=== PATIENT | female | born 1975 | race Caucasian/White ===

== ENCOUNTER → 2016-08-21 | Outpatient (CLI) | payer SELFPAY ==
[2016-08-21 08:26] LABS: MEAN PLATELET VOLUME 9.3 FL (7.4-10.4); RED BLOOD COUNT 4.85 10^6/uL (4.35-5.85); RED CELL DISTRIBUTION WIDTH 12.6 % (10.0-14.5); WHITE BLOOD COUNT 5.1 10^3/uL (4.3-11.0)
[2016-08-21 08:50] LABS: ALANINE AMINOTRANSFERASE 27 U/L (0-55); ALBUMIN 4.2 G/DL (3.2-4.5); ANION GAP 8 MMOL/L (5-14); ASPARTATE AMINO TRANSFERASE 23 U/L (5-34); BILIRUBIN,TOTAL 0.5 MG/DL (0.1-1.0); BLOOD UREA NITROGEN 9 MG/DL (7-18); BUN/CREATININE RATIO 11; CARBON DIOXIDE 26 MMOL/L (21-32); CHLORIDE 105 MMOL/L (98-107); CREATININE SERUM 0.81 MG/DL (0.60-1.30); GFR ESTIMATED > 60; GLUCOSE 95 MG/DL (70-105); SODIUM 139 MMOL/L (135-145); TOTAL PROTEIN 7.1 G/DL (6.4-8.2)
[2016-08-21 09:11] LABS: THYROID STIMULATING HORMONE 2.98 UIU/ML (0.35-4.94)
[2016-08-22 08:40] LABS: VITAMIN D 25-HYDROXY (TOTAL) 28 ng/mL (30-100)
[2016-08-25 07:35] LABS: MISC LAB TEST & RESULT CARDIO IQ LIPID
== END ==
LOC: LAB 08:07
DX: Z13.9 Encounter for screening, unspecified (principal)
CPT/HCPCS: 36415; 80053; 82306; 84439; 84443; 85027

== ENCOUNTER → 2016-08-21 | Outpatient (CLI) | payer SELFPAY ==
--- NOTE | 2016-08-23 09:40 | ECHOCARDIOGRAPHY REPORT ---
DATE OF SERVICE: 08/21/2016 REFERRING PHYSICIAN: USHA BEARDEN DO TEST DATE: 08/21/2016 MEASUREMENT: LVID end diastolic 4.0, IVS thickness 1.0, LVPW thickness 1.0, left atrial diameter 3.1, ejection fraction 60%. FINDINGS: 1. Technical quality is good. 2. The left ventricle is normal in size with normal contractility. No left ventricular hypertrophy. No segmental wall motion abnormalities, systolic function appeared to be normal, estimated ejection fraction 60%. 3. The left atrium is normal in size. No clot or thrombus were seen within the left atrium. 4. The right atrium and right ventricle are normal in size. No clot or thrombus were seen within the right side. 5. Mitral valve is normal in morphology with trace mitral regurgitation noted by color Doppler flow. No mitral valve prolapse. No mitral valve stenosis. 6. Aortic valve is trileaflet with normal opening and closing pattern. No significant aortic stenosis or regurgitation was seen. 7. Tricuspid valve is normal in morphology with trace tricuspid regurgitation noted by color Doppler flow. Doppler across the tricuspid valve estimated pulmonary artery pressure of 20+ right atrial pressure. 8. Pulmonic valve is functioning normally. 9. No pericardial effusion. CONCLUSION: 1. Normal to echocardiogram. 2. Normal left ventricular size and systolic function, estimated ejection fraction 60%. 3. Trace mitral and tricuspid regurgitation. 4. Estimated pulmonary artery pressure of 25 mmHg. Job ID: [id number] DocumentID: [id number] Dictated Date: 08/23/2016 07:58:30 Retort Press Operator Date: 08/23/2016 08:19:58 Dictated By: GIOVANNI MENDOSA MD
--- NOTE | 2016-08-23 19:15 | Diagnostic Imaging Report ---
Bilateral screening mammogram. The current study was also evaluated with a Computer Aided Detection (CAD) system. INDICATION: Screening. No current complaints stated on the questionnaire. COMPARISON: None. This is a baseline study. FINDINGS: The breasts are composed of scattered fibroglandular densities. No mass, architectural distortion, or suspicious cluster of calcification. IMPRESSION: No mammographic evidence of malignancy. ACR BI-RADS Category 1: Negative. Result letter will be mailed to the patient. Note: At least 10% of breast cancer is not imaged by mammography. Dictated by: Dictated on workstation # [id number]
== END ==
LOC: CARD 08:10
DX: Z12.31 Encounter for screening mammogram for malignant neoplasm of breast (principal); Z13.9 Encounter for screening, unspecified
CPT/HCPCS: 77067; 93005; 93306

== ENCOUNTER → 2017-02-05 | Outpatient (CLI) | payer BC ==
--- NOTE | 2017-02-05 15:26 | Diagnostic Imaging Report ---
INDICATION: Chest tightness. TECHNIQUE: PA and lateral views of the chest were obtained at 3:13 PM. FINDINGS: The heart and mediastinal silhouette are normal in appearance. The lungs are clear. There is no pneumothorax or pleural fluid. IMPRESSION: Negative chest. Dictated by: Dictated on workstation # [id number]
== END ==
LOC: CARD 14:27
PROVIDERS: ATTEND Nurse Practitioner Family
DX: R07.89 Other chest pain (principal)
CPT/HCPCS: 36415; 71020; 85379; 93005

== ENCOUNTER → 2019-02-13 | Outpatient (CLI) | payer BC ==
--- NOTE | 2019-02-13 12:17 | Diagnostic Imaging Report ---
INDICATION: Routine screening. Comparison is made with prior mammogram from 08/21/2016. 2-D and 3-D bilateral screening mammography was performed with a Computer Aided Detection (CAD) system. 3-D tomosynthesis was also performed and reviewed. FINDINGS: Scattered fibroglandular densities are identified bilaterally. No mass or malignant appearing microcalcifications are seen. Axillae are unremarkable. IMPRESSION: No mammographic features suspicious for malignancy are identified. ACR BI-RADS Category 1: Negative. Result letter will be mailed to the patient. Note: At least 10% of breast cancer is not imaged by mammography. Dictated by: Dictated on workstation # [id number]
== END ==
LOC: RAD 10:50
PROVIDERS: ATTEND Obstetrics & Gynecology Female Pelvic Medicine and Reconstructive Surgery
DX: Z12.31 Encounter for screening mammogram for malignant neoplasm of breast (principal)
CPT/HCPCS: 77067

== ENCOUNTER → 2019-03-16 | Outpatient (CLI) | payer BC ==
--- NOTE | 2019-03-16 14:19 | Diagnostic Imaging Report ---
INDICATION: Palpable lump in the upper outer right breast. COMPARISON: Correlation is made with the recent mammogram from 02/13/2019 as well as 08/21/2016. TECHNIQUE: Unilateral right 2D and 3D diagnostic mammography was performed after placement of a BB marker at the area of palpable abnormality in the upper-outer right breast. FINDINGS: Scattered fibroglandular densities in the right breast are noted. There is some mild density noted at the area of palpable abnormality in the upper-outer right breast. No suspicious calcifications are seen. The right axilla is unremarkable. IMPRESSION: Mild density is noted at the area of palpable abnormality in the upper-outer right breast. Further evaluation of this area with ultrasound is recommended and will be performed today. ACR BI-RADS Category 0: Incomplete. (Needs additional imaging evaluation). Result letter will be mailed to the patient. Note: At least 10% of breast cancer is not imaged by mammography. Dictated by: Dictated on workstation # [id number]
--- NOTE | 2019-03-16 14:21 | Diagnostic Imaging Report ---
INDICATION: Palpable lump right breast. Correlation is made with diagnostic mammogram earlier same day. Sonographic interrogation of the area of lump in the right breast was performed. This corresponds to approximately the 8:30 location, 7 cm from the nipple. There is a tiny hypoechoic nodule just below the skin surface at this location measuring approximately 5 mm in size. This does demonstrate some echogenic tissue around it which may represent fat. No associated vascularity is seen. No other abnormalities are identified. IMPRESSION: BI-RADS 2 Subcentimeter hypoechoic nodule just deep to the skin surface at the 8:30 location of the right breast, 7 cm from the nipple. This does correspond to the palpable abnormality and most likely represents a sebaceous cyst. No other abnormality is detected. ACR BI-RADS Category 2: Benign findings. Dictated by: Dictated on workstation # [id number]
== END ==
LOC: RAD 12:43
PROVIDERS: ATTEND Nurse Practitioner Family
DX: N63.11 Unspecified lump in the right breast, upper outer quadrant (principal)

== ENCOUNTER 2019-04-09 11:12 | Outpatient (RCR) | payer BC ==
[2019-04-02 13:14] VITALS: BP 134/91
[2019-04-02] MEDS: FERRIC CARBOXYMALTOSE INJ 750 MG in NS (IVPB) 250 ML IV SCH (13:44)
[~2019-04-09] VITALS: Ht 160 cm; Wt 70.5 kg
[2019-04-09] MEDS: FERRIC CARBOXYMALTOSE INJ 750 MG in NS (IVPB) 250 ML IV SCH (11:29)
[2019-04-09 11:55] VITALS: BP 128/80
== END 2019-04-09 11:55 | disposition home or self-care (01) ==
LOC: SDC 11:12
PROVIDERS: ATTEND Family Medicine
DX: D50.9 Iron deficiency anemia, unspecified (principal)
CPT/HCPCS: 96365

== ENCOUNTER 2020-12-05 22:49 | Emergency (ER) | payer BC ==
[~2020-12-05] VITALS: Ht 160 cm; Wt 70.5 kg
--- NOTE | 2020-12-06 00:03 | ED Respiratory ---
General Chief Complaint: Respiratory Problems Stated Complaint: POST BLOOD TRANSFUSION/DIFF BREATHING/ELEV HR Source: patient, family Exam Limitations: no limitations (GARCÍA HOBSON) History of Present Illness Date Seen by Provider: Dec 05, 2020 Time Seen by Provider: 23:30 Initial Comments Pt presents to ED with at bedside with complaints of intermittent SOB, chest tightness and sporadic fevers. She states that she had a hernia repair and bilateral mastectomy last week. She received 2U PRBCs earlier this afternoon from about 12:30-4:30. She states she has been having episodes of SOB and L-mid chest tightness and intermittent fevers up to 103. She states that she has a history of anxiety and the episodes of SOB are nothing new but she is worried about it in combination with the chest tightness/fevers. She has no complaints of pain, denies N/V. Timing/Duration: getting worse Severity: moderate Prior Episodes/Possible Cause: chronic episodes Modifying Factors: Improves With Other (pt has not verbalized alleviating/aggravating factors) Associated Symptoms: No cough; fever/chills; No headache, No lightheadedness; shortness of breath (GARCÍA HOBSON) Allergies and Home Medications Allergies Coded Allergies: No Known Drug Allergies (Unverified , 04/02/19) Patient Home Medication List Home Medication List Reviewed: Yes (GARCÍA HOBSON) Review of Systems Review of Systems Constitutional: No chills; fever; No weakness EENTM: No ear pain, No vision loss Respiratory: No cough, No hemoptysis; short of breath (intermittent) Cardiovascular: edema (mild BLE); No palpitations; other (complains of L-mid chest pressure intermittently with SOB) Gastrointestinal: No abdominal pain, No constipation, No diarrhea, No nausea, No vomiting Genitourinary: No dysuria, No frequency, No hematuria Musculoskeletal: No back pain, No joint pain Skin: No change in color, No change in hair/nails Psychiatric/Neurological: Anxiety; Denies Headache, Denies Numbness, Denies Paresthesia (GARCÍA HOBSON) All Other Systems Reviewed Negative Unless Noted: Yes (GARCÍA HOBSON) Past Sxmuzex-Vkzkve-Plizwe Hx Patient Social History Tobacco Use?: No Substance use?: No Alcohol Use?: No (JOCE,GARCÍA MED STUDENT) Physical Exam Vital Signs - First Documented 12/05/20 23:07 Temp 36.5 Pulse 119 Resp 18 B/P (MAP) 142/84 (103) Pulse Ox 98 O2 Delivery Room Air (JALIL HELTON) Capillary Refill : (GARCÍA HOBSON [employer] STUDENT) Height: '" Weight: lbs. oz. kg; BMI Method: General Appearance: WD/WN, no apparent distress Eyes: Bilateral Eye Normal Inspection, Bilateral Eye PERRL, Bilateral Eye EOMI HEENT: PERRL/EOMI, normal ENT inspection, pharynx normal Neck: non-tender, full range of motion, supple, normal inspection Respiratory: chest non-tender, lungs clear, normal breath sounds, no respiratory distress, no accessory muscle use Cardiovascular: normal peripheral pulses, regular rate, rhythm, no murmur Gastrointestinal: normal bowel sounds, non tender, soft Extremities: normal range of motion, non-tender, normal inspection, no pedal edema, normal capillary refill Neurologic/Psychiatric: no motor/sensory deficits, alert, oriented x 3, other (anxious) Skin: normal color, warm/dry Lymphatic: no adenopathy (GARCÍA HOBSON [employer] STUDENT) Progress/Results/Core Measures Suspected Sepsis SIRS Temperature: Pulse: Respiratory Rate: Laboratory Tests 12/06/20 00:14: Blood Pressure / Mean: Laboratory Tests 12/06/20 00:14: (GARCÍA HOBSON [employer] STUDENT) Results/Orders Lab Results Laboratory Tests Test 12/06/20 00:14 Range/Units White Blood Count 8.6 4.3-11.0 10^3/uL Red Blood Count 3.58 L 3.80-5.11 10^6/uL Hemoglobin 10.3 L 11.5-16.0 g/dL Hematocrit 31 L 35-52 % Mean Corpuscular Volume 87 80-99 fL Mean Corpuscular Hemoglobin 29 25-34 pg Mean Corpuscular Hemoglobin Concent 33 32-36 g/dL Red Cell Distribution Width 14.1 10.0-14.5 % Platelet Count 210 130-400 10^3/uL Mean Platelet Volume 9.6 9.0-12.2 fL Immature Granulocyte % (Auto) 14 % Neutrophils (%) (Auto) 68 42-75 % Lymphocytes (%) (Auto) 10 L 12-44 % Monocytes (%) (Auto) 3 0-12 % Eosinophils (%) (Auto) 5 0-10 % Basophils (%) (Auto) 0 0-10 % Neutrophils # (Auto) 5.8 1.8-7.8 10^3/uL Lymphocytes # (Auto) 0.8 L 1.0-4.0 10^3/uL Monocytes # (Auto) 0.3 0.0-1.0 10^3/uL Eosinophils # (Auto) 0.4 H 0.0-0.3 10^3/uL Basophils # (Auto) 0.0 0.0-0.1 10^3/uL Immature Granulocyte # (Auto) 1.2 H 0.0-0.1 10^3/uL D-Dimer 13.99 H 0.00-0.49 UG/ML Sodium Level 127 L 135-145 MMOL/L Potassium Level 4.5 3.6-5.0 MMOL/L Chloride Level 95 L 98-107 MMOL/L Carbon Dioxide Level 23 21-32 MMOL/L Anion Gap 9 5-14 MMOL/L Blood Urea Nitrogen 7 7-18 MG/DL Creatinine 0.79 0.60-1.30 MG/DL Estimat Glomerular Filtration Rate 79 BUN/Creatinine Ratio 9 Glucose Level 100 70-105 MG/DL Calcium Level 8.2 L 8.5-10.1 MG/DL Corrected Calcium 8.8 8.5-10.1 MG/DL Total Bilirubin 0.5 0.1-1.0 MG/DL Aspartate Amino Transf (AST/SGOT) 67 H 5-34 U/L Alanine Aminotransferase (ALT/SGPT) 57 H 0-55 U/L Alkaline Phosphatase 57 40-136 U/L C-Reactive Protein High Sensitivity 7.26 H 0.00-0.50 MG/DL B-Type Natriuretic Peptide < 10.0 <100.0 PG/ML Total Protein 6.2 L 6.4-8.2 GM/DL Albumin 3.2 3.2-4.5 GM/DL Serum Test, Qualitative NEGATIVE NEGATIVE (JALIL HELTON) My Orders Orders - JALIL HELTON Cbc With Automated Diff (12/06/20 00:09) Comprehensive Metabolic Panel (12/06/20 00:09) Hs C Reactive Protein (12/06/20 00:09) Fibrin Degradation Products (12/06/20 00:09) Ct Angio Chest W (12/06/20 00:09) Ed Iv/Invasive Line Start (12/06/20 00:09) Ns Iv 1000 Ml (Sodium Chloride 0.9%) (12/06/20 00:15) BNP (12/06/20 00:25) Hcg,Qualitative Serum (12/06/20 00:25) Iohexol Injection (Omnipaque 350 Mg/Ml 1 (12/06/20 01:45) Ns (Ivpb) (Sodium Chloride 0.9% Ivpb Bag (12/06/20 01:45) (JALIL HELTON) Medications Given in ED (JALIL HELTON) Vital Signs/I&O 12/05/20 12/06/20 23:07 02:48 Temp 36.5 36.5 Pulse 119 117 Resp 18 14 B/P (MAP) 142/84 (103) 119/80 (103) Pulse Ox 98 98 O2 Delivery Room Air Room Air (JALIL HELTON) Vital Signs/I&O Capillary Refill : (GARCÍA HOBSON MED STUDENT) Progress Note : Progress Note I attest that I saw this patient alongside the medical student and agree with his documented history, physical exam and review of systems except as otherwise noted. With her recent surgery and chest pain and shortness of air it could be surmised she might have a pulmonary embolism so a CT angiogram was ordered given the higher level of risk and pretest probability. The CT angiogram did not reveal pneumonia or other significant acute changes. Little bit of atelectasis but she has not been able to use her incentive spirometer today since she is been doing outpatient therapy. Certainly her hemoglobin is over 10 and she does not require any further blood transfusions. Electrolytes are little off which may contribute to her malaise. Plan to let her go home and follow-up outpatient. Atelectasis can cause postoperative fever so will encourage her to use her incentive spirometer and keep close follow-up with her surgeon and/or primary care provider. (JALIL HELTON) Diagnostic Imaging Diagonstic Imaging: CT Plain Films/CT/US/NM/MRI: chest Comments No pulmonary embolism. Atelectasis seen. [facility]. [place], [place] NAME: ROLO PERRIN [facility] REC#: [id number] PT STATUS: DEP ER : [id number] PHYSICIAN: JALIL HELTON MD ADMIT DATE: 12/05/20/ER Signed Date of Exam:12/06/20 CT ANGIO CHEST W PROCEDURE: CT angiography of the chest with contrast. TECHNIQUE: Multiple contiguous axial images were obtained through the chest after uneventful bolus administration of intravenous contrast. 3D reconstructed CTA MIP acquisitions were also performed. Auto Exposure Controls were utilized during the CT exam to meet ALARA standards for radiation dose reduction. INDICATION: Postoperative state with dyspnea There is good opacification of pulmonary arteries without intraluminal filling defect. Thoracic aorta is of normal caliber. Note is made of basilar atelectasis in both lungs with possible minimal right pleural fluid. There is edema and gas in the anterior abdominal wall. This is incompletely included on this examination. There is no evidence of pericardial fluid. There are occasional mildly prominent mediastinal lymph nodes without pathologically enlarged adenopathy is identified. Note is made of small amount of pneumoperitoneum. IMPRESSION: No CTA evidence of pulmonary embolism. There is mild dependent atelectasis and possible small amount right pleural fluid. Postoperative findings are seen within the anterior abdomen. Clinical correlation would be useful. Dictated by: Dictated on workstation # [id number] Dict: 12/06/20 0635 Trans: 12/06/20 1204 [facility] [id number] Interpreted by: SHANIQUE RIVERA MD Electronically signed by: SHANIQUE RIVERA MD 12/06/20 1204 Reviewed: Reviewed Night [facility] Study, Reviewed by Me (JALIL HELTON) Departure Impression Primary Impression: Atelectasis, bilateral Disposition: 01 HOME, SELF-CARE Condition: Stable Departure-Patient Inst. Decision time for Depature: 02:35 (JALIL HELTON) Referrals: USHA BEARDEN DO (PCP/Family) Primary Care Physician Patient Instructions: Atelectasis Add. Discharge Instructions: Follow-up with your doctor tomorrow by calling. Promptly return to the ER for significant increase in pain, worsening shortness of air or other worrisome symptoms. All discharge instructions reviewed with patient and/or family. Voiced understanding. Copy Copies To 1: USHA BEARDEN JOHNNY MED STUDENT Dec 06, 2020 00:03 JALIL HELTON J Dec 06, 2020 02:36
[2020-12-06] MEDS ORDERED: NS IV 1000 ML 1,000 ML IV SCH (00:15)
[2020-12-06 00:29] LABS: BASOPHILS % (AUTO) 0 % (0-10); EOSINOPHILS # (AUTO) 0.4 10^3/uL (0.0-0.3); EOSINOPHILS % (AUTO) 5 % (0-10); HEMATOCRIT 31 % (35-52); HEMOGLOBIN 10.3 g/dL (11.5-16.0); LYMPHOCYTES # (AUTO) 0.8 10^3/uL (1.0-4.0); LYMPHOCYTES % (AUTO) 10 % (12-44); MEAN CORPUSCULAR HEMOGLOBIN 29 pg (25-34); MEAN CORPUSCULAR HGB CONC 33 g/dL (32-36); MEAN CORPUSCULAR VOLUME 87 fL (80-99); MEAN PLATELET VOLUME 9.6 fL (9.0-12.2); MONOCYTES # (AUTO) 0.3 10^3/uL (0.0-1.0); MONOCYTES % (AUTO) 3 % (0-12); NEUTROPHILS # (AUTO) 5.8 10^3/uL (1.8-7.8); NEUTROPHILS % (AUTO) 68 % (42-75); PLATELET COUNT 210 10^3/uL (130-400); WHITE BLOOD COUNT 8.6 10^3/uL (4.3-11.0)
[2020-12-06 00:36] LABS: ALBUMIN 3.2 GM/DL (3.2-4.5); POTASSIUM 4.5 MMOL/L (3.6-5.0)
[2020-12-06 00:37] LABS: CALCIUM 8.2 MG/DL (8.5-10.1)
[2020-12-06 00:38] LABS: TOTAL PROTEIN 6.2 GM/DL (6.4-8.2)
[2020-12-06 00:40] LABS: BILIRUBIN,TOTAL 0.5 MG/DL (0.1-1.0)
[2020-12-06 00:42] LABS: CREATININE SERUM 0.79 MG/DL (0.60-1.30)
[2020-12-06] MEDS ORDERED: IOHEXOL 350 MG/ML 100 ML (OMNIPAQUE 350) VIAL IV ONE (01:45)
[2020-12-06] MEDS ORDERED: NS 100 ML (IVPB) BAG IV ONE (01:45)
[2020-12-06 02:48] VITALS: BP 119/80
--- NOTE | 2020-12-06 06:53 | Diagnostic Imaging Report ---
PROCEDURE: CT angiography of the chest with contrast. TECHNIQUE: Multiple contiguous axial images were obtained through the chest after uneventful bolus administration of intravenous contrast. 3D reconstructed CTA MIP acquisitions were also performed. Auto Exposure Controls were utilized during the CT exam to meet ALARA standards for radiation dose reduction. INDICATION: Postoperative state with dyspnea There is good opacification of pulmonary arteries without intraluminal filling defect. Thoracic aorta is of normal caliber. Note is made of basilar atelectasis in both lungs with possible minimal right pleural fluid. There is edema and gas in the anterior abdominal wall. This is incompletely included on this examination. There is no evidence of pericardial fluid. There are occasional mildly prominent mediastinal lymph nodes without pathologically enlarged adenopathy is identified. Note is made of small amount of pneumoperitoneum. IMPRESSION: No CTA evidence of pulmonary embolism. There is mild dependent atelectasis and possible small amount right pleural fluid. Postoperative findings are seen within the anterior abdomen. Clinical correlation would be useful. Dictated by: Dictated on workstation # [id number]
== END 2020-12-06 02:48 | disposition home or self-care (01) ==
LOC: EDUNIT# 22:49 → ER 22:51
DX: J98.11 Atelectasis (principal)
CPT/HCPCS: 36415; 71275; 80053; 83880; 84703; 85025; 85379; 86141; 96360

== ENCOUNTER 2021-03-30 05:32 | Outpatient (RCR) | payer BC ==
[~2021-03-30] VITALS: Ht 160 cm; Wt 73.5 kg
[~2021-03-30 05:32] MED LIST: ASPI-999 PO; ATOR10TA66 PO; FEXO1TAB43 PO; LISI10TA25 PO
[2021-03-31] MEDS ORDERED: SUCR1TAB36 PO (14:47)
[2021-03-31] MEDS ORDERED: PANT40TA2 PO (14:47)
== END 2021-03-30 09:38 | disposition home or self-care (01) ==
LOC: PREOP 05:32
PROVIDERS: ATTEND Surgery
DX: Z01.812 Encounter for preprocedural laboratory examination (principal); K21.9 Gastro-esophageal reflux disease without esophagitis; Z20.822 Contact with and (suspected) exposure to COVID-19
CPT/HCPCS: 87636

== ENCOUNTER 2021-03-31 13:12 | Day surgery (SDC) | payer BC ==
[~2021-03-31] VITALS: Ht 160 cm; Wt 73.5 kg
[2021-03-31] MEDS ORDERED: LACTATED RINGERS 1,000 ML IV ONE (13:23)
[2021-03-31] MEDS ORDERED: LACTATED RINGERS 1,000 ML IV STA (13:25)
[2021-03-31] MEDS ORDERED: HURRICAINE EXT TUBE (BENZOCAINE) XX PRN (13:30)
[2021-03-31 13:39] VITALS: BP 130/85
[2021-03-31] MEDS ORDERED: proPOfol 200 MG/20 ML (DIPRIVAN) VIAL IV ONE (14:17)
[2021-03-31] MEDS ORDERED: MIDAZOLAM 2 MG/2 ML (VERSED) VIAL ONE (14:17)
[2021-03-31 14:35] VITALS: BP 118/74
[2021-03-31 14:40] VITALS: BP 127/90
--- NOTE | 2021-03-31 14:45 | Progress Note-Post Operative ---
Post-Operative Progess Note Surgeon (s)/Passenger Vessel Chef (s) Surgeon VIK GIANG DO Passenger Vessel Chef: na Pre-Operative Diagnosis dysphagia Post-Operative Diagnosis distal esophageal stricture Procedure & Operative Findings Date of Procedure 03/31/21 Procedure Performed/Findings egd c biopsy antrum, dilation of distal esophagus to 15 mm Anesthesia Type per trucker Estimated Blood Loss Estimated blood loss (mL): scant Specimens/Packing Specimens Removed antrum VIK GIANG DO Mar 31, 2021 14:45
[2021-03-31] MEDS ORDERED: SUCR1TAB36 PO (14:47)
[2021-03-31] MEDS ORDERED: PANT40TA2 PO (14:47)
--- NOTE | 2021-03-31 14:48 | Discharge Inst-Simple/Standard ---
Discharge Inst-Standard Discharge Medications New, Converted or Re-Newed RX: Transmitted to Pharmacy Patient Instructions/Follow Up Plan of Care/Instructions/FU: 2 weeks Demond Liquids/softs today, regular diet tomorrow. Activity as Tolerated: Yes Discharge Diet: Liquid Diet, Soft Diet VIK GIANG DO Mar 31, 2021 14:48
[2021-03-31 15:05] VITALS: BP 125/85
--- NOTE | 2021-03-31 20:23 | OPERATIVE REPORT ---
DATE OF SERVICE: 03/31/2021 PREOPERATIVE DIAGNOSIS: Dysphagia. POSTOPERATIVE DIAGNOSIS: Distal esophageal stricture. SURGEON: Vik Lagos DO ANESTHESIA: Per INTELLIGENCE DIRECTOR. PROCEDURE: EGD with biopsy of the antrum and dilation of the distal esophagus to 15 mm. INDICATIONS: The patient is a 45-year-old female with difficulty swallowing at times. She has had previous dilatations before. She understands risks and benefits of procedure and wishes to proceed. Consent was signed in the chart. DESCRIPTION OF PROCEDURE: The patient was taken to the endoscopy suite, placed in left lateral recumbent position. Timeout was performed. Scope was inserted in the mouth, down the esophagus, stomach and into the duodenum without difficulty. No polyps, masses or ulcerations. Scope was slowly retracted back into the stomach where it was further insufflated. Biopsy of the antrum was obtained. No polyps, masses or ulcerations. Scope was retroflexed noting no other pathology. Scope was returned to its normal position, slowly withdrawn to distal esophagus. The distal portion appears to be a slight narrowing at the distal esophagus. A balloon dilator was then advanced the scope through the area of narrowing. A balloon was taken up to 1 cm without difficulty, taken down, increased to 12 mm in diameter balloon, taken down, increased to 14, taken down without difficulty and then advanced to 15 mm, which then the patient had a slight bleeding from dilating. The balloon was then taken down and removed. Scope was then slowly retracted back till completely removed noting no other pathology. The patient tolerated the procedure well without any complications. She was taken to recovery room in stable condition. RECOMMENDATIONS: The patient to be on Protonix and Carafate. We will follow up on biopsy and symptoms in a couple of weeks in the office. Any issues before that be seen at that time, may need serial dilatations. Job ID: [id number] DocumentID: [id number] Dictated Date: 03/31/2021 14:52:48 Pipe Roller Date: 03/31/2021 20:22:45 Dictated By: VIK LAGOS DO
== END 2021-03-31 15:13 | disposition home or self-care (01) ==
LOC: ENDO 13:12
PROVIDERS: ATTEND Surgery
DX: K22.2 Esophageal obstruction (principal); K29.50 Unspecified chronic gastritis without bleeding; K21.9 Gastro-esophageal reflux disease without esophagitis; I10 Essential (primary) hypertension; Z79.899 Other long term (current) drug therapy; Z79.82 Long term (current) use of aspirin
CPT/HCPCS: 84703

== ENCOUNTER → 2021-06-15 | Outpatient (CLI) | payer BC ==
[~2021-06-15] MED LIST changes: +BARIUM for suspension 96% w/w (Vanilla Silq Medium Density) PO ONE; +BARIUM for suspension 98% w/w (Vanilla Silq High Density) PO ONE; +PANT40TA2 PO; +SUCR1TAB36 PO
--- NOTE | 2021-06-15 12:17 | Diagnostic Imaging Report ---
INDICATION: Dysphagia. TECHNIQUE: Patient ingested effervescent crystals as well as thin and thick barium, and imaging of the esophagus was performed in multiple obliquities. 0.8 minutes of fluoroscopic time was utilized. FINDINGS: Preliminary radiograph of the chest is unremarkable. There is a short segment of very mild smooth narrowing of the most distal esophagus near the GE junction. There is free passage of contrast into the stomach, however. No obstruction is seen. There is no hiatal hernia or gastroesophageal reflux. No mass is detected. IMPRESSION: Mild smooth narrowing of the distal esophagus, without evidence of obstruction. Dictated by: Dictated on workstation # [id number]
== END ==
LOC: RAD 09:15
PROVIDERS: ATTEND Surgery
DX: R13.11 Dysphagia, oral phase (principal)
CPT/HCPCS: 74220

== ENCOUNTER 2022-05-01 05:21 | Outpatient (CLI) | payer BC ==
[~2022-05-01] VITALS: Ht 160 cm; Wt 72.0 kg
[~2022-05-01 05:21] MED LIST changes: -BARIUM for suspension 96% w/w (Vanilla Silq Medium Density) PO ONE; -BARIUM for suspension 98% w/w (Vanilla Silq High Density) PO ONE
[2022-05-03] MEDS ORDERED: PROG200C10 PO (09:53)
[2022-05-04] MEDS ORDERED: MAGN400C PO (12:08)
[2022-05-04] MEDS ORDERED: ZINC220T3 PO (12:08)
[2022-05-04] MEDS ORDERED: MELA1TAB16 PO (12:08)
[2022-05-04] MEDS ORDERED: CETI10CA PO (12:08)
[2022-05-04] MEDS ORDERED: MULT-593 PO (12:08)
== END 2022-05-04 12:10 | disposition home or self-care (01) ==
LOC: PREOP 05:21
PROVIDERS: ATTEND Surgery
DX: Z01.818 Encounter for other preprocedural examination (principal)

== ENCOUNTER 2022-05-08 07:07 | Day surgery (SDC) | payer BC ==
[~2022-05-08] VITALS: Ht 160 cm; Wt 72.0 kg
[~2022-05-08 07:07] MED LIST changes: +CETI10CA PO; +MAGN400C PO; +MELA1TAB16 PO; +MULT-593 PO; +PROG200C10 PO; +ZINC220T3 PO
[2022-05-08] MEDS ORDERED: LACTATED RINGERS 1,000 ML IV STA (07:12)
[2022-05-08] MEDS ORDERED: HURRICAINE EXT TUBE (BENZOCAINE) XX PRN (07:15)
[2022-05-08] MEDS ORDERED: proPOfol 200 MG/20 ML (DIPRIVAN) VIAL IV ONE (07:21)
[2022-05-08 07:30] VITALS: BP 121/87
[2022-05-08] MEDS ORDERED: PANT40TA2 PO (08:36)
[2022-05-08] MEDS ORDERED: SUCR1TAB36 PO (08:36)
--- NOTE | 2022-05-08 08:37 | Discharge Inst-Simple/Standard ---
Discharge Inst-Standard Discharge Medications New, Converted or Re-Newed RX: Transmitted to Pharmacy Patient Instructions/Follow Up Plan of Care/Instructions/FU: 3 weeks sheba Activity as Tolerated: Yes Discharge Diet: Liquid Diet (today, advance diet tomorrow as tolerates.) VIK GIANG DO May 08, 2022 08:37
[2022-05-08 08:40] VITALS: BP 125/81
[2022-05-08 08:45] VITALS: BP 130/80
[2022-05-08 08:50] VITALS: BP 127/90
[2022-05-08 09:09] VITALS: BP 127/90
--- NOTE | 2022-05-08 10:28 | Anesthesia-General Post-Op ---
MAC Patient Condition Mental Status/LOC: Same as Preop Cardiovascular: Satisfactory Nausea/Vomiting: Absent Respiratory: Satisfactory Pain: Controlled Complications: Absent Post Op Complications Complications None Follow Up Care/Instructions Patient Instructions None needed. Anesthesiology Discharge Order Discharge Order Patient is doing well, no complaints, stable vital signs, no apparent adverse anesthesia problems. No complications reported per nursing. MISA ROBERTS CRNA May 08, 2022 10:28
--- NOTE | 2022-05-08 14:17 | OPERATIVE REPORT ---
DATE OF SERVICE: 05/08/2022 PREOPERATIVE DIAGNOSIS: Dysphagia. POSTOPERATIVE DIAGNOSES: Gastritis and distal esophageal stricture. PROCEDURE: EGD with biopsies. Dilatation 14.25 mm. SURGEON: Vik Lagos DO. ANESTHESIA: Per DIRECTOR OF CONTENT AND PROGRAMMING. BLOOD LOSS: Scant. COMPLICATIONS: None. INDICATIONS: The patient is a 47-year-old female with dysphagia symptoms. She understands risks and benefits of procedure and wishes to proceed. Consent was signed in chart. DESCRIPTION OF PROCEDURE: The patient was taken to the endoscopy suite, placed in the left lateral recumbent position. Timeout was performed. Scope was through the mouth, down the esophagus, noting some slight distal stricture. The scope was able to be passed through this area into the stomach, noticing gastritis appearance of the body and antrum. Through the pylorus into the duodenum, the duodenum had no polyps, masses, ulcerations. Scope was slowly retracted back. Some inflammatory changes in the antrum and body. Biopsies of the antrum and body were obtained. Scope was retroflexed noting no other pathology. Scope was returned to its normal position, slowly withdrawn to the distal esophagus. A balloon dilator was then advanced through the distal stricture. This was serially ballooned up to where it was 14.25 mm and then taken down at this area. At this diameter, a small tear in the mucosa was present with scant bleeding present. Balloon was taken down and no further dilatation performed. The scope was slowly retracted back until completely removed without any other pathology. The patient tolerated the procedure well without complication and was taken to recovery room in stable condition. RECOMMENDATIONS: The patient to be on Protonix and Carafate. She will be on liquid diet today and then advance as tolerates tomorrow. Would recommend likely repeat endoscopy and possible dilatation in 6 to 8 weeks. Job ID: [id number] DocumentID: [id number] Dictated Date: 05/08/2022 08:40:40 Wrapper Stitcher Date: 05/08/2022 14:16:00 Dictated By: VIK LAGOS DO
== END 2022-05-08 09:17 | disposition home or self-care (01) ==
LOC: ENDO 07:07
PROVIDERS: ATTEND Surgery
DX: K22.2 Esophageal obstruction (principal); K29.70 Gastritis, unspecified, without bleeding; K21.9 Gastro-esophageal reflux disease without esophagitis
CPT/HCPCS: 88305

== ENCOUNTER 2022-08-01 05:34 | Outpatient (CLI) | payer BC ==
[~2022-08-01] VITALS: Ht 160 cm; Wt 72.1 kg
== END 2022-08-02 09:33 | disposition home or self-care (01) ==
LOC: PREOP 05:34
PROVIDERS: ATTEND Surgery
DX: Z01.818 Encounter for other preprocedural examination (principal)

== ENCOUNTER 2022-08-14 08:05 | Day surgery (SDC) | payer BC ==
[~2022-08-14] VITALS: Ht 160 cm; Wt 72.1 kg
[2022-08-14 08:20] VITALS: BP 127/94
[2022-08-14 10:05] VITALS: BP 110/57
[2022-08-14 10:10] VITALS: BP 113/56
[2022-08-14 10:15] VITALS: BP 125/74
[2022-08-14 11:15] VITALS: BP 125/74
[2022-08-14] MEDS ORDERED: LACTATED RINGERS 1,000 ML IV ONE (14:22)
[2022-08-14] MEDS ORDERED: HURRICAINE EXT TUBE (BENZOCAINE) ONE (14:22)
--- NOTE | 2022-08-14 14:45 | Anesthesia-General Post-Op ---
MAC Patient Condition Mental Status/LOC: Same as Preop Cardiovascular: Satisfactory Nausea/Vomiting: Absent Respiratory: Satisfactory Pain: Controlled Complications: Absent Post Op Complications Complications None Follow Up Care/Instructions Patient Instructions None needed. Anesthesiology Discharge Order Discharge Order Patient is doing well, no complaints, stable vital signs, no apparent adverse anesthesia problems. No complications reported per nursing. JEWEL RAMSAY CRNA August 14, 2022 14:45
--- NOTE | 2022-08-14 15:34 | OPERATIVE REPORT ---
DATE OF SERVICE: 08/14/2022 PREOPERATIVE DIAGNOSES: Gastroesophageal reflux disease, esophageal stricture. POSTOPERATIVE DIAGNOSIS: Distal esophageal stricture. PROCEDURE: EGD with dilatation of 14 mm. SURGEON: Vik Lagos DO ANESTHESIA: Per CONSTRUCTION CONTRACTOR. ESTIMATED BLOOD LOSS: Scant. COMPLICATIONS: None. SPECIMENS: None. INDICATIONS: The patient is a 47-year-old female with distal esophageal stricture and dysphagia symptoms. She understands risks and benefits of procedure and wished to proceed. Consent was signed in chart. DESCRIPTION OF PROCEDURE: The patient was taken to endoscopy suite, placed in left lateral recumbent position. Timeout was performed. Scope was inserted in the mouth, down the esophagus, stomach, into the duodenum without difficulty. No polyps, masses or ulcerations. Scope was slowly retracted back into stomach that was further insufflated. No polyps, masses or ulcerations. Scope was retroflexed noting no other pathology. Scope was returned to its normal position, slowly withdrawn until distal esophagus, noting a stricture, dilated from 12-14 mm. [ ] 14 mm scant bleeding was present. It was held for 1 minute. The balloon was then taken down and then stopped any further dilatation. Scope was then slowly retracted back until completely removed, noting no other pathology. The patient tolerated the procedure well without any complications, taken to recovery room in stable condition. RECOMMENDATIONS: Continue current medication. Would recommend repeat evaluation 6-8 weeks and probably further dilatation. Job ID: [id number] DocumentID: [id number] Dictated Date: 08/14/2022 10:02:43 Certified Residential Medication Aide Date: 08/14/2022 15:31:00 Dictated By: VIK LAGOS DO
[2022-08-15] MEDS ORDERED: HURRICAINE EXT TUBE (BENZOCAINE) XX PRN (12:15)
[2022-08-15] MEDS ORDERED: LACTATED RINGERS 1,000 ML IV STA (12:15)
== END 2022-08-14 11:20 | disposition home or self-care (01) ==
LOC: ENDO 08:05
PROVIDERS: ATTEND Surgery
DX: K22.2 Esophageal obstruction (principal); K21.9 Gastro-esophageal reflux disease without esophagitis; Z79.899 Other long term (current) drug therapy
CPT/HCPCS: 84703

== ENCOUNTER 2022-09-26 05:41 | Outpatient (CLI) | payer BC ==
[~2022-09-26] VITALS: Ht 160 cm; Wt 72.0 kg
== END 2022-09-27 10:33 | disposition home or self-care (01) ==
LOC: PREOP 05:41
PROVIDERS: ATTEND Surgery
DX: Z01.818 Encounter for other preprocedural examination (principal)

== ENCOUNTER 2022-10-09 07:35 | Day surgery (SDC) | payer BC ==
[~2022-10-09] VITALS: Ht 160 cm; Wt 72.0 kg
[2022-10-09] MEDS ORDERED: LACTATED RINGERS 1,000 ML IV STA (07:41)
[2022-10-09] MEDS ORDERED: HURRICAINE EXT TUBE (BENZOCAINE) XX PRN (07:45)
[2022-10-09 08:00] VITALS: BP 112/80
[2022-10-09] MEDS ORDERED: PROPOFOL INJECTION 50 ML IV ONE (08:55)
[2022-10-09] MEDS ORDERED: MIDAZOLAM 2 MG/2 ML (VERSED) VIAL ONE (08:55)
[2022-10-09 09:15] VITALS: BP 105/62
[2022-10-09 09:20] VITALS: BP 102/58
[2022-10-09] MEDS ORDERED: PANT40TA2 PO (09:23)
--- NOTE | 2022-10-09 09:24 | Discharge Inst-Simple/Standard ---
Discharge Inst-Standard Discharge Medications New, Converted or Re-Newed RX: Transmitted to Pharmacy Patient Instructions/Follow Up Plan of Care/Instructions/FU: 2-3 weeks Demond Activity as Tolerated: Yes Discharge Diet: Regular Diet VIK GIANG DO Oct 09, 2022 09:24
[2022-10-09 09:25] VITALS: BP 103/64
--- NOTE | 2022-10-09 09:26 | Progress Note-Post Operative ---
Post-Operative Progess Note Surgeon (s)/Engagement Specialist (s) Surgeon VIK GIANG DO Engagement Specialist: na Pre-Operative Diagnosis dysphagia, esophageal stricture history Post-Operative Diagnosis esophageal stricture Procedure & Operative Findings Date of Procedure 10/09/22 Procedure Performed/Findings egd c dilation to 15 mm Anesthesia Type per it teacher Estimated Blood Loss Estimated blood loss (mL): none Specimens/Packing Specimens Removed na VIK GIANG DO Oct 09, 2022 09:26
[2022-10-09 09:50] VITALS: BP 103/64
--- NOTE | 2022-10-09 12:11 | Anesthesia-General Post-Op ---
MAC Patient Condition Mental Status/LOC: Same as Preop Cardiovascular: Satisfactory Nausea/Vomiting: Absent Respiratory: Satisfactory Pain: Controlled Complications: Absent Post Op Complications Complications None Follow Up Care/Instructions Patient Instructions None needed. Anesthesiology Discharge Order Discharge Order Patient is doing well, no complaints, stable vital signs, no apparent adverse anesthesia problems. No complications reported per nursing. JEWEL RAMSAY CRNA Oct 09, 2022 12:11
--- NOTE | 2022-10-09 15:17 | OPERATIVE REPORT ---
DATE OF SERVICE: 10/09/2022 PREOPERATIVE DIAGNOSES: Dysphagia, history of esophageal stricture. POSTOPERATIVE DIAGNOSIS: Esophageal stricture. PROCEDURE: EGD with dilation to 15 mm. SURGEON: Vik Lagos DO ANESTHESIA: Per SECURITY PROGRAM MANAGER. ESTIMATED BLOOD LOSS: None. COMPLICATIONS: None. INDICATIONS: The patient is a 47-year-old female with esophageal stricture. She understands risks and benefits of procedure and wished to proceed. Consent was signed in chart. DESCRIPTION OF PROCEDURE: The patient was taken to the operating suite, placed in left lateral recumbent position. Timeout was performed. Scope was inserted in the mouth, down the esophagus with noting some slight stricturing distally. Scope into the stomach and into the duodenum without difficulty. No polyps, masses or ulcerations in the duodenum. Scope was retracted back into stomach, was further insufflated. No polyps, masses or ulcerations. Scope was retroflexed noting no other pathology. Scope was returned to its normal position, slowly withdrawn until the distal esophagus. A balloon dilator was inserted and began to be increased. The distal esophagus was approximately 13 mm. Then, was able to dilate the distal esophagus up to 15 mm. Balloon was held for 1 minute, then deflated, a good result. Scope was then slowly retracted back until completely removed, noting no other pathology. RECOMMENDATIONS: Continue on Protonix 40 mg daily. Would follow up in 2-3 weeks. We would consider repeat EGD and dilatation possibly in one year. If any issues before that would go earlier. Job ID: [id number] DocumentID: [id number] Dictated Date: 10/09/2022 09:28:04 Franchise Business Consultant Date: 10/09/2022 15:16:00 Dictated By: VIK LAGOS DO
== END 2022-10-09 10:20 | disposition home or self-care (01) ==
LOC: ENDO 07:35
PROVIDERS: ATTEND Surgery
DX: K22.2 Esophageal obstruction (principal); K21.9 Gastro-esophageal reflux disease without esophagitis; Z79.899 Other long term (current) drug therapy; Z28.310 Unvaccinated for COVID-19
CPT/HCPCS: 84703

== ENCOUNTER 2022-11-23 10:51 | Outpatient (RCR) | payer BC ==
[2022-11-16] MEDS: FERRIC CARBOXYMALTOSE INJ 750 MG in NS (IVPB) 250 ML 250 ML IV SCH (12:08)
[2022-11-16 12:28] VITALS: BP 136/88
[~2022-11-23] VITALS: Ht 160 cm; Wt 66.0 kg
[2022-11-23 10:55] VITALS: BP 118/87
[2022-11-23] MEDS: FERRIC CARBOXYMALTOSE INJ 750 MG in NS (IVPB) 250 ML 250 ML IV SCH (11:15)
== END 2022-12-13 | disposition home or self-care (01) ==
LOC: SDC 10:51
PROVIDERS: ATTEND Family Medicine
DX: D50.9 Iron deficiency anemia, unspecified (principal)
CPT/HCPCS: 96365

== ENCOUNTER → 2023-01-24 | Outpatient (CLI) | payer BC ==
--- NOTE | 2023-01-24 13:24 | Diagnostic Imaging Report ---
INDICATION: Acute low back pain. AP and lateral views of lumbar spine are obtained. Lumbar spinal curvature and alignment are unremarkable. Vertebral body heights and disc spaces are maintained, although there is narrowing of the L5-S1 space. No fracture or malalignment is seen. There is no lytic or sclerotic lesion. IMPRESSION: No radiographic evidence of acute lumbar spinal abnormality. Dictated by: Dictated on workstation # [id number]
== END ==
LOC: RAD 11:31
PROVIDERS: ATTEND Family Medicine
DX: M54.50 Low back pain, unspecified (principal)
CPT/HCPCS: 72100